=== PATIENT | female | born 1965 | race Caucasian/White ===

== ENCOUNTER 2017-05-20 18:23 | Emergency (ER) | payer OTHER ==
[2017-05-20 19:06] LABS: BASOPHIL % 0.1 % (0.0-0.4); Eosinophil % 1.3 % (0.00-5.0); Granulocytes % 60.4 % (36.0-66.0); Mean Cell Volume 91.4 fl (78-100); Mean Corpuscular Hemoglobin 30.9 pg (26-32); Mean Platelet Volume 10.5 fl (6-9.5); Monocytes % 8.2 % (0.0-12.0); Platelet Count 327 K/mm3 (150-450); Red Blood Count 4.18 M/mm3 (4.1-5.4); Red Cell Distribution Width 13.8 % (11.5-14.0); White Blood Count 7.4 K/mm3 (4.0-10.5)
[2017-05-20] MEDS ORDERED: Zofran 4 MG/2 ML VIAL IV ONE (19:10)
[2017-05-20] MEDS ORDERED: PROTONIX 40 MG IV IV ONE ×2 (19:10→19:23)
[2017-05-20] MEDS ORDERED: Pepcid 20 MG VIAL IV ONE ×2 (19:10→19:24)
[2017-05-20] MEDS ORDERED: Sodium Chloride 0.9% 1000 ML 1,000 ML IV STA (19:10)
--- NOTE | 2017-05-20 19:13 | ERPHSYRPT ---
- History of Present Illness Time Seen by Provider: 05/20/17 19:12 Historian: patient Exam Limitations: no limitations Patient Subjective Stated Complaint: PT REPORTS ABD PAIN NAUSEA-STATES SHE WAS PLACED ON CARAFATE YESTERDAY BY PCP BUT IT HAS NOT HELPED-STATES SHE FEELS LIKE SHE IS GOING TO THROW UP BUT DON'T Triage Nursing Assessment: PT PINK WARM ET DRY-ABD TENDER TO PALP-PT GUARDING ABD-RESP EASY ET NONLABORED-BOWEL SOUND SPRESENT Physician History: c/o abdominal pain in epigastric area radiating to back and to pharynx.took some of her medicines on empty stomach. Timing/Duration: yesterday Quality: burning Abdominal Pain Onset Location: epigastric Pain Radiation: back Severity of Pain-Max: moderate Severity of Pain-Current: moderate Modifying Factors: Improves With: nothing Associated Symptoms: denies symptoms Previous symptoms: no prior history Allergies/Adverse Reactions: No Known Drug Allergies Allergy (Verified 05/20/17 18:29) Home Medications: Bupropion HCl [Wellbutrin Xl] 300 mg PO DAILY 11/14/16 [History] PANTOPRAZOLE 40 mg Tablet [Protonix 40MG Tablet] 40 mg PO QAM 11/14/16 [ History] Propranolol HCl 10 mg [Inderal 10 MG] 10 mg PO HS 11/14/16 [History] Venlafaxine HCl [Effexor] 150 mg PO DAILY 11/14/16 [History] Hx Tetanus, Diphtheria Vaccination/Date Given: Yes Hx Influenza Vaccination/Date Given: Yes Hx Pneumococcal Vaccination/Date Given: No Immunizations Up to Date: Yes - Review of Systems Constitutional: No Fever, No Chills Eyes: No Symptoms Ears, Nose, & Throat: No Symptoms Respiratory: No Cough, No Dyspnea Cardiac: No Chest Pain, No Edema, No Syncope Abdominal/Gastrointestinal: Abdominal Pain, Nausea, No Vomiting, No Diarrhea Genitourinary Symptoms: No Dysuria Musculoskeletal: No Back Pain, No Neck Pain Skin: No Rash Neurological: No Dizziness, No Focal Weakness, No Sensory Changes Psychological: No Symptoms Endocrine: No Symptoms All Other Systems: Reviewed and Negative - Past Medical History Pertinent Past Medical History: Yes Cardiac History: Other GI Medical History: GERD Psycho-Social History: Depression Other Medical History: tachycardia - Past Surgical History Past Surgical History: Yes Musculoskeletal: Orthopedic Surgery Female Surgical History: Section Other Surgical History: RIGHT FOOT - Social History Smoking Status: Current every day smoker How long have you smoked: 3 yrs Exposure to second hand smoke: No Drug Use: none Patient Lives Alone: No - Female History Hx Last Menstrual Period: NOT SURE - Nursing Vital Signs Nursing Vital Signs: Initial Vital Signs Temperature 98.9 F 05/20/17 18:31 Pulse Rate 110 H 05/20/17 18:31 Respiratory Rate 18 05/20/17 18:31 Blood Pressure 138/96 05/20/17 18:31 O2 Sat by Pulse Oximetry 96 05/20/17 18:31 Pain Scale Pain Intensity 9 - Physical Exam General Appearance: no apparent distress, alert Eye Exam: PERRL/EOMI, eyes nml inspection Ears, Nose, Throat Exam: normal ENT inspection, pharynx normal, moist mucous membranes Neck Exam: normal inspection, non-tender, supple, full range of motion Respiratory Exam: normal breath sounds, lungs clear, No respiratory distress Cardiovascular Exam: regular rate/rhythm, normal heart sounds Gastrointestinal/Abdomen Exam: soft, No tenderness, No mass Back Exam: normal inspection, normal range of motion, No CVA tenderness, No vertebral tenderness Extremity Exam: normal inspection, normal range of motion, pelvis stable Neurologic Exam: alert, oriented x 3, cooperative, normal mood/affect, nml cerebellar function, sensation nml, No motor deficits Skin Exam: normal color, warm, dry SpO2: 96 Oxygen Delivery: Room Air - Course Nursing assessment & vital signs reviewed: Yes Ordered Tests: Active Orders 24 hr Category Date Time Status IV Insertion STAT Care 05/20/17 18:48 Active CHEST 1 VIEW (PORTABLE) Stat Exams 05/20/17 18:48 Taken AMYLASE Stat Lab 05/20/17 18:50 Completed CBC W DIFF Stat Lab 05/20/17 18:50 Completed CMP Stat Lab 05/20/17 18:50 Completed CULTURE,URINE Stat Lab 05/20/17 18:48 Ordered HCG,QUALITATIVE URINE Stat Lab 05/20/17 18:50 Completed LIPASE Stat Lab 05/20/17 18:50 Completed Lactic Acid Stat Lab 05/20/17 19:00 Completed TROPONIN Q3H Lab 05/20/17 18:50 Completed TROPONIN Q3H Lab 05/20/17 22:00 Ordered TROPONIN Q3H Lab 05/21/17 01:00 Ordered TROPONIN Q3H Lab 05/21/17 04:00 Ordered TROPONIN Q3H Lab 05/21/17 07:00 Ordered Urine Triage Profile Stat Lab 05/20/17 19:00 Completed Medication Summary Generic Name Dose Route Start Last Admin Trade Name Freq PRN Reason Stop Dose Admin Sodium Chloride 1,000 mls @ 999 mls/hr 05/20/17 19:10 05/20/17 19:32 Sodium Chloride 0.9% 1000 Ml IV 05/20/17 20:10 999 mls/hr .Q1H1M STA Administration Discontinued Medications Generic Name Dose Route Start Last Admin Trade Name Freq PRN Reason Stop Dose Admin Famotidine 20 mg 05/20/17 19:10 05/20/17 19:32 Pepcid 20 Mg Vial IV 05/20/17 19:11 20 mg STAT ONE Administration Famotidine Confirm 05/20/17 19:24 Pepcid 20 Mg Vial Administered 05/20/17 19:25 Dose 20 mg IV .STK-MED ONE Sodium Chloride Confirm 05/20/17 19:24 Sodium Chloride 0.9% 1000 Ml Administered 05/20/17 19:25 Dose 1,000 mls @ ud .ROUTE .STK-MED ONE Ondansetron HCl 4 mg 05/20/17 19:10 05/20/17 19:32 Zofran 4 Mg/2 Ml Vial IV 05/20/17 19:11 4 mg STAT ONE Administration Ondansetron HCl Confirm 05/20/17 19:23 Zofran 4 Mg/2 Ml Vial Administered 05/20/17 19:24 Dose 4 mg .ROUTE .STK-MED ONE Pantoprazole Sodium 40 mg 05/20/17 19:10 05/20/17 19:32 Protonix 40 Mg Iv IV 05/20/17 19:11 40 mg STAT ONE Administration Pantoprazole Sodium Confirm 05/20/17 19:23 Protonix 40 Mg Iv Administered 05/20/17 19:24 Dose 40 mg IV .STK-MED ONE Lab/Rad Data: Laboratory Result Diagrams 05/20/17 18:50 05/20/17 18:50 Laboratory Results 05/20/17 05/20/17 05/20/17 Range/Units 19:00 19:00 18:50 WBC (4.0-10.5) K/mm3 RBC (4.1-5.4) M/mm3 Hgb (12.0-16.0) gm/dl Hct (35-47) % MCV (78-100) fl MCH (26-32) pg MCHC (32-36) g/dl RDW (11.5-14.0) % Plt Count (150-450) K/mm3 MPV (6-9.5) fl Gran % (36.0-66.0) % Lymphocytes % (24.0-44.0) % Monocytes % (0.0-12.0) % Eosinophils % (0.00-5.0) % Basophils % (0.0-0.4) % Basophils # (0-0.4) Sodium 141 (136-145) mEq/L Potassium 3.6 (3.5-5.1) mEq/L Chloride 105 (98-107) mEq/L Carbon Dioxide 22.6 (21-32) mEq/L Anion Gap 17.3 H (5-15) MEQ/L BUN 6 L (9-20) mg/dL Creatinine 0.71 (0.55-1.30) mg/dl Estimated GFR > 60 ML/MIN Glucose 99 (70-110) MG/DL Lactic Acid 1.1 (0.4-2.0) Calcium 9.6 (8.5-10.1) mg/dL Total Bilirubin 0.50 (0.2-1.0) mg/dL AST 12 L (15-37) U/L ALT 14 (12-78) U/L Alkaline Phosphatase 67 (46-116) U/L Troponin I (0.000-0.056) ng/ml Serum Total Protein 7.6 (6.4-8.2) gm/dL Albumin 4.3 (3.4-5.0) g/dL Amylase (25-115) U/L Lipase (73-393) U/L Urine HCG, Qual (Negative) Urine Opiates Level NEG. (NEGATIVE) Ur Methadone NEG. (NEGATIVE) Urine Barbiturates NEG. (NEGATIVE) Ur Phencyclidine (PCP) NEG. (NEGATIVE) Urine Amphetamine NEG. (NEGATIVE) U Benzodiazepine Level NEG. (NEGATIVE) Urine Cocaine NEG. (NEGATIVE) Urine Marijuana (THC) POS. (NEGATIVE) 05/20/17 05/20/17 05/20/17 Range/Units 18:50 18:50 18:50 WBC (4.0-10.5) K/mm3 RBC (4.1-5.4) M/mm3 Hgb (12.0-16.0) gm/dl Hct (35-47) % MCV (78-100) fl MCH (26-32) pg MCHC (32-36) g/dl RDW (11.5-14.0) % Plt Count (150-450) K/mm3 MPV (6-9.5) fl Gran % (36.0-66.0) % Lymphocytes % (24.0-44.0) % Monocytes % (0.0-12.0) % Eosinophils % (0.00-5.0) % Basophils % (0.0-0.4) % Basophils # (0-0.4) Sodium (136-145) mEq/L Potassium (3.5-5.1) mEq/L Chloride (98-107) mEq/L Carbon Dioxide (21-32) mEq/L Anion Gap (5-15) MEQ/L BUN (9-20) mg/dL Creatinine (0.55-1.30) mg/dl Estimated GFR ML/MIN Glucose (70-110) MG/DL Lactic Acid (0.4-2.0) Calcium (8.5-10.1) mg/dL Total Bilirubin (0.2-1.0) mg/dL AST (15-37) U/L ALT (12-78) U/L Alkaline Phosphatase (46-116) U/L Troponin I < 0.017 (0.000-0.056) ng/ml Serum Total Protein (6.4-8.2) gm/dL Albumin (3.4-5.0) g/dL Amylase 44 (25-115) U/L Lipase 163 (73-393) U/L Urine HCG, Qual NEGATIVE (Negative) Urine Opiates Level (NEGATIVE) Ur Methadone (NEGATIVE) Urine Barbiturates (NEGATIVE) Ur Phencyclidine (PCP) (NEGATIVE) Urine Amphetamine (NEGATIVE) U Benzodiazepine Level (NEGATIVE) Urine Cocaine (NEGATIVE) Urine Marijuana (THC) (NEGATIVE) 05/20/17 Range/Units 18:50 WBC 7.4 (4.0-10.5) K/mm3 RBC 4.18 (4.1-5.4) M/mm3 Hgb 12.9 (12.0-16.0) gm/dl Hct 38.2 (35-47) % MCV 91.4 (78-100) fl MCH 30.9 (26-32) pg MCHC 33.8 (32-36) g/dl RDW 13.8 (11.5-14.0) % Plt Count 327 (150-450) K/mm3 MPV 10.5 H (6-9.5) fl Gran % 60.4 (36.0-66.0) % Lymphocytes % 30.0 (24.0-44.0) % Monocytes % 8.2 (0.0-12.0) % Eosinophils % 1.3 (0.00-5.0) % Basophils % 0.1 (0.0-0.4) % Basophils # 0.01 (0-0.4) Sodium (136-145) mEq/L Potassium (3.5-5.1) mEq/L Chloride (98-107) mEq/L Carbon Dioxide (21-32) mEq/L Anion Gap (5-15) MEQ/L BUN (9-20) mg/dL Creatinine (0.55-1.30) mg/dl Estimated GFR ML/MIN Glucose (70-110) MG/DL Lactic Acid (0.4-2.0) Calcium (8.5-10.1) mg/dL Total Bilirubin (0.2-1.0) mg/dL AST (15-37) U/L ALT (12-78) U/L Alkaline Phosphatase (46-116) U/L Troponin I (0.000-0.056) ng/ml Serum Total Protein (6.4-8.2) gm/dL Albumin (3.4-5.0) g/dL Amylase (25-115) U/L Lipase (73-393) U/L Urine HCG, Qual (Negative) Urine Opiates Level (NEGATIVE) Ur Methadone (NEGATIVE) Urine Barbiturates (NEGATIVE) Ur Phencyclidine (PCP) (NEGATIVE) Urine Amphetamine (NEGATIVE) U Benzodiazepine Level (NEGATIVE) Urine Cocaine (NEGATIVE) Urine Marijuana (THC) (NEGATIVE) - Progress Progress: improved, pain not gone completely Counseled pt/family regarding: lab results, diagnosis, need for follow-up - Departure Time of Disposition: 19:51 Departure Disposition: Home Clinical Impression: GERD (gastroesophageal reflux disease) Qualifiers: Esophagitis presence: with esophagitis Qualified Code(s): K21.0 - Gastro- esophageal reflux disease with esophagitis Condition: Stable Critical Care Time: Yes Critical Care Time(excluding separately billable procedures): 30-74 minutes Referrals: CHERRY CORDOVA [Primary Care Provider] - Instructions: Gastroesophageal Reflux Disease (GERD), Abdominal Pain-Adult, GERD Diet Additional Instructions: ABDOMINAL PAIN 1. There are several different causes for abdominal pain, some of which may not be able to be identified on initial examination. 2. The important thing to remember is that bodily functions can change in a short period of time. If you notice any of the following symptoms, return to the emergency department or consult your doctor immediately: A. Worsening pain or no improvement in the next 12 hours. B. Increasing, severe abdominal pain C. Blood in stool D. Black stools E. Persistent vomiting F. Fever or chills or other symptoms Please follow the instructions given to you. Please take your medication as prescribed if given. If symptoms recur or get worse, come back to the emergency room if you cannot reach your primary care physician, or call your primary care physician for an appointment. Again if your symptoms get worse, come back to the emergency room. Thanks for visiting emergency room, and let us take care of you. Prescriptions: Famotidine 20 mg [Pepcid 20 MG] 20 mg PO BID #60 tablet
[2017-05-20 19:23] LABS: LIPASE 163 U/L (73-393)
[2017-05-20] MEDS ORDERED: Zofran 4 MG/2 ML VIAL ONE (19:23)
[2017-05-20] MEDS ORDERED: Sodium Chloride 0.9% 1000 ML 1,000 ML ONE (19:24)
[2017-05-20 19:29] LABS: ALBUMIN 4.3 g/dL (3.4-5.0); ALKALINE PHOSPHATASE 67 U/L (46-116); BLOOD UREA NITROGEN 6 mg/dL (9-20); Glucose 99 MG/DL (70-110); SGPT/ALT 14 U/L (12-78); Total Protein 7.6 gm/dL (6.4-8.2)
[2017-05-20 19:41] LABS: ANION GAP 17.3 MEQ/L (5-15); CHLORIDE 105 mEq/L (98-107); Carbon Dioxide 22.6 mEq/L (21-32); Potassium 3.6 mEq/L (3.5-5.1); SGOT/AST 12 U/L (15-37); SODIUM 141 mEq/L (136-145)
[2017-05-20] MEDS ORDERED: GI COCKTAIL 45 ML (Maalox/Lidocaine) PO ONE (20:01)
[2017-05-20] MEDS ORDERED: MAALOX ES 30 ML UNIT DOSE ONE ×2 (20:05→20:08)
[2017-05-20] MEDS ORDERED: XYLOCAINE HCl Viscous ONE ×2 (20:05→20:07)
[2017-05-20 20:24] VITALS: BP 140/80; PULSE 80; O2SAT 98
[2017-05-20] MEDS ORDERED: Ativan 2 MG/1 ML VIAL IM ONE (20:42)
[2017-05-20] MEDS ORDERED: Ativan 2 MG/1 ML VIAL ONE (20:45)
--- NOTE | 2017-05-20 23:33 | XRAY ---
Indication: Pain. Comparison: None Portable chest clear with incidental bilateral nipple shadows. Heart is not enlarged. Bony thorax intact. Impression: Normal portable chest.
== END 2017-05-20 21:09 | disposition home or self-care (01) ==
LOC: ED 18:23
DX: K21.0 Gastro-esophageal reflux disease with esophagitis (principal); R10.13 Epigastric pain
CPT/HCPCS: 36000; 36415; 71010; 80053; 80307; 82150; 83605; 83690; 84484; 84703; 85025; 87086; 96360; 96361; 96372; 96375; 99284; J2060; J2405; A9270-GY

== ENCOUNTER 2017-06-10 05:49 | Day surgery (SDC) | payer OTHER ==
[2017-06-10] MEDS ORDERED: Ketamine HCl 50 MG/ML IJ ONE (05:50)
[2017-06-10] MEDS ORDERED: DIPRIVAN 200 MG/20 ML IV ONE (05:50)
[2017-06-10] MEDS ORDERED: Lactated Ringers 1,000 ML IV SCH (06:30)
[2017-06-10 07:53] VITALS: O2SAT 100
--- NOTE | 2017-06-10 07:57 | OP ---
SURGERY DATE/TIME: 06/10/2017701 PREOPERATIVE DIAGNOSIS: Gastroesophageal reflux. POSTOPERATIVE DIAGNOSIS: Moderate gastritis. PROCEDURE: Esophagogastroduodenoscopy with biopsy. SURGEON: Dr. Corbin. ANESTHESIA: Medications were given by the anesthesia department. BRIEF HISTORY: The patient is a 51 year old white female presenting now for endoscopic evaluation. She reports that she has been having problems with epigastric pain. It has been so severe that she has been to the emergency room roughly three weeks ago for the problem. The patient had been started on H2 cookie in addition to proton pump inhibitor that she has been taking. She reports that she stopped taking nonsteroidals as they burn her stomach. The patient was felt to need to have endoscopic evaluation. She was appraised of the risks of the procedure including the risk of perforation, phlebitis, untoward reaction to medication, bleeding and missed lesions. The patient verbalized her understanding and desired to have the procedure performed. DESCRIPTION OF PROCEDURE: The patient was given the medications by the anesthesia department. She had continuous pulse oximetry, ECG monitoring, intermittent blood pressure monitoring and tidal CO2 monitoring during the examination. She was placed in the left lateral decubitus position. A bite block was placed and the flexible Olympus gastroscope was used to intubate the oropharynx. A view of the larynx was obtained and was normal. The scope was easily introduced in the esophagus which was normal throughout its length. The stomach was entered where normal gastric rugal folds were seen and these distended nicely with insufflation of air. The scope was passed along the greater curvature of the stomach to the antrum. The pylorus was encountered and intubated. The duodenum was inspected and found to be normal. The scope was withdrawn towards the stomach. Retroflex view is obtained of the lesser curvature, fundus and cardia regions of the stomach and these appeared to be normal and no evidence of hiatal hernia was noted. The scope was redirected towards the gastric antrum and biopsies were obtained to rule out the presence of Helicobacter pylori-type organisms. The stomach did appear to be somewhat erythematous but no erosions or ulcerations were noted. The scope was removed from the patient who tolerated the procedure well and was sent back to the hospital [facility]arden in good condition.
[2017-06-10 08:14] VITALS: BP 117/69; PULSE 65
== END 2017-06-10 08:16 | disposition home or self-care (01) ==
LOC: SDC 05:49
PROVIDERS: ATTEND Family Medicine
PROC: 0DB78ZX Excision of Stomach, Pylorus, Via Natural or Artificial Opening Endoscopic, Diagnostic (ICD-10-PCS; principal; 2017-06-10)
DX: K29.70 Gastritis, unspecified, without bleeding (principal)
CPT/HCPCS: 00740; 36415; 88305; 88312; J2704